=== PATIENT | female | born 1990 | race Caucasian/White ===

== ENCOUNTER 2017-07-18 16:36 | Emergency (ER) | payer SELFPAY ==
[2017-07-18 17:52] LABS: BUN Blood Urea Nitrogen 10 mg/dL (6-20); Bicarbonate 24 mEq/L (21-31); Glomerular Filtration Rate > 90 mL/min (=/>90); Glucose Level 96 mg/dL (65-120); Potassium 3.8 mEq/L (3.6-5.0); Sodium Level 136 mEq/L (135-145)
[2017-07-18 17:53] LABS: Absolute Lymphocytes (CBC) 2.6 K/uL (0.7-4.9); Absolute Monocytes 0.6 K/uL (0.1-1.3); Absolute Neutrophil 8.3 K/uL (1.8-8.0); Basophils % 0.2 % (0-1.3); Eosinophils % 1.5 % (0-4.4); Hematocrit 39.9 % (36.0-45.0); Lymphocytes % 22.5 % (15.3-44.8); MCH 31.1 pg (27.0-35.0); MCV 92.5 fL (80-100); MPV 8.4 fL (7.6-11.3); Monocytes % 5.2 % (3.3-12.3); RBC Red Blood Cell Count 4.32 M/uL (3.86-4.86)
[2017-07-18 18:04] LABS: Urine Specific Gravity 1.015 (1.005-1.030)
[2017-07-18 18:04] LABS: Urine Blood NEGATIVE (NEG); Urine Glucose NEGATIVE (NEG); Urine Protein NEGATIVE (NEG); Urine Specific Gravity 1.015 (1.005-1.030)
--- NOTE | 2017-07-18 18:28 | RAD REPORT ---
EXAM DESCRIPTION: US - Transvaginal OB - 07/18/2017 6:21 pm CLINICAL HISTORY: Pelvic pain and cramping. COMPARISON: None. FINDINGS: A single gestational sac is seen within the uterus. Within the sac is a single pole with crown-rump length measuring 5 mm corresponding to 6 weeks 2 days gestational age. Cardiac activity is normal measuring 113 BPM. The left ovary demonstrates normal size, shape and echotexture with normal Doppler blood flow. The ri ght ovary was not well evaluated sonographically. IMPRESSION: Single live early intrauterine gestation as detailed above.
--- NOTE | 2017-07-18 18:41 | EDPHYS ---
Physician Documentation [facility] Name: Mitra Hidalgo Age: 26 yrs Sex: Female : 1990 Arrival Date: 07/18/2017 Time: 16:40 Bed 27 Private MD: ED Physician Ryan Rodriguez HPI: 07/18 17:25 This 26 yrs old Female presents to ER via Ambulatory with complaints of 6 Wks cp , Abdominal Cramping. 17:25 The patient presents to the emergency department with abdominal pain, of the right cp lower quadrant and left lower quadrant, that started 2 day(s) ago, described as crampy. 17:25 course: care: none, Leakage of Fluid: none appreciated, Ultrasound: cp the patient has not had an ultrasound. Previous pregnancies: in previous pregnancies patient has had vaginal delivery, no complications. Associated signs and symptoms: Pertinent negatives: dysuria, fever, ruptured membranes, vaginal bleeding, vaginal discharge. 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 - Social history:: Smoking status: Patient uses tobacco products, smokes one-half pack cigarettes per day. ROS: 17:30 Constitutional: Negative for body aches, chills, fever, poor PO intake. cp 17:30 Eyes: Negative for injury, pain, redness, and discharge. cp 17:30 Cardiovascular: Negative for chest pain, edema, palpitations. cp 17:30 Abdomen/GI: Positive for abdominal pain, Negative for vomiting, diarrhea, constipation, cp anorexia. 17:30 Back: Negative for pain at rest, pain with movement, radiated pain. 17:30 : Negative for urinary symptoms, vaginal bleeding, vaginal discharge. 17:30 Skin: Negative for cellulitis, rash. 17:30 All other systems are negative. Exam: 17:35 Head/Face: Normocephalic, atraumatic. cp 17:35 Constitutional: The patient appears in no acute distress, alert, awake, comfortable, non-toxic, well developed, well nourished, obese. 17:35 Eyes: Periorbital structures: appear normal, Conjunctiva: normal, no exudate, no cp injection, Sclera: no appreciated abnormality, Lids and lashes: appear normal, bilaterally. 17:35 ENT: External ear(s): are unremarkable, Nose: is normal, Mouth: is normal, Posterior pharynx: is normal, airway is patent. 17:35 Chest/axilla: Inspection: normal, Palpation: is normal, no crepitus, no tenderness. 17:35 Cardiovascular: Rate: normal, Rhythm: regular. 17:35 Respiratory: the patient does not display signs of respiratory distress, Respirations: cp normal, no use of accessory muscles, no retractions, no splinting, no tachypnea, labored breathing, is not present, Breath sounds: are clear throughout, no decreased breath sounds, no stridor, no wheezing. 17:35 Abdomen/GI: Inspection: obese Bowel sounds: active, all quadrants, Palpation: soft, in all quadrants, mild abdominal tenderness, in the right lower quadrant and left lower quadrant, rebound tenderness, is not appreciated, involuntary guarding, is not appreciated. 17:35 Skin: cellulitis, is not appreciated, no rash present. Vital Signs: 16:59 BP 142 / 65; Pulse 67; Resp 16; Temp 97.7(O); Pulse Ox 99% on R/A; Weight 122.47 kg; ss Height 5 ft. 6 in. (167.64 cm); Pain 6/10; 18:00 BP 122 / 70; Pulse 71; Resp 15; Pulse Ox 100% on R/A; lk1 16:59 Body Mass Index 43.58 (122.47 kg, 167.64 cm) ss MDM: 16:52 Patient medically screened. cp 17:00 Differential diagnosis: STD, ectopic . cp 18:37 Data reviewed: vital signs, nurses notes, lab test result(s), radiologic studies, cp ultrasound, and as a result, I will discharge patient. 18:37 Counseling: I had a detailed discussion with the patient and/or guardian regarding: the cp historical points, exam findings, and any diagnostic results supporting the discharge/admit diagnosis, lab results, radiology results, the need for outpatient follow up, an OB/Gyne specialist, to return to the emergency department if symptoms worsen or persist or if there are any questions or concerns that arise at home. 18:37 Special discussion: Based on the patient's Hx, exam, and Dx evaluation, there is no cp indication for emergent surgery or inpatient Tx. It is understood by the patient/guardian that if the Sx's persist or worsen they need to return immediately for re-evaluation. 07/18 17:12 Order name: Quantitative Hcg; Complete Time: 18:49 07/18 18:49 Interpretation: HCGQ 61367.0; Reviewed. 07/18 17:12 Order name: Abo/rh Typing; Complete Time: 18:34 cp 07/18 17:12 Order name: Basic Metabolic Panel; Complete Time: 18:49 cp 07/18 18:35 Interpretation: Reviewed. 07/18 17:12 Order name: CBC with Diff; Complete Time: 18:34 cp 07/18 18:38 Interpretation: Normal except: WBC 11.7; NEUT A 8.3. 07/18 18:02 Order name: Urine Dipstick--Ancillary (enter results); Complete Time: 18:34 ss 07/18 18:34 Interpretation: Normal except: UESTR TRACE. 07/18 18:03 Order name: Urine --Ancillary (enter results); Complete Time: 18:34 ss 07/18 18:34 Interpretation: Reviewed. 07/18 17:12 Order name: Urine Test (obtain specimen); Complete Time: 18:01 07/18 17:12 Order name: IV Saline Lock; Complete Time: 18:01 07/18 17:12 Order name: Labs collected and sent; Complete Time: 18:01 07/18 17:12 Order name: NPO; Complete Time: 18:01 07/18 17:12 Order name: Urine Dipstick-Ancillary (obtain specimen); Complete Time: 18:01 07/18 17:46 Order name: US Transvaginal Ob; Complete Time: 18:34 07/18 18:50 Interpretation: Report reviewed. 07/18 18:15 Order name: ABO/RH no charge; Complete Time: 18:34 EDMS Administered Medications: 18:35 Drug: Tylenol 1000 mg Route: PO; lk1 18:56 Follow up: Response: No adverse reaction lk1 Disposition: 07/18/17 18:40 Discharged to Home. Impression: Lower abdominal pain, unspecified, related conditions, unspecified, first trimester. - Condition is Stable. - Discharge Instructions: Abdominal Pain During , Medicines During , Pelvic Rest. - Medication Reconciliation Form, Thank You Letter, Antibiotic Education, Prescription Opioid Use form. - Follow up: Private Physician; When: 1 week; Reason: Recheck today's complaints. - Problem is new. - Symptoms have improved. Addendum: 07/20/2017 07:01 Co-signature as Attending Physician, Ryan Rodriguez MD I agree with the assessment and k dr plan of care. Signatures: Dispatcher [employer] EDMS Ryan Rodriguez MD MD [facility] Corinna Rios RN RN Peter Garcia PA PA cp Hermelinda Mayo, RN RN lk1 Corrections: (The following items were deleted from the chart) 07/18 18:38 18:34 Normal except: WBC 11.7. cp cp
--- NOTE | 2017-07-18 18:41 | ER ---
Nurse's Notes [facility] Name: Mitra Hidalgo Age: 26 yrs Sex: Female : 1990 Arrival Date: 07/18/2017 Time: 16:40 Bed 27 Private MD: Diagnosis: Lower abdominal pain, unspecified; related conditions, unspecified, first trimester Presentation: 07/18 16:55 Presenting complaint: Patient states: pt reports she is approx 6 weeks and c/o ss lower abd cramping x 2-3 days. "it almost feels like [place] prater" denies vaginal bleeding. Transition of care: patient was not received from another setting of care. Onset of symptoms was July 13, 2017. Care prior to arrival: None. 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 - Social history:: Smoking status: Patient uses tobacco products, smokes one-half pack cigarettes per day. Screenin:57 Abuse screen: Denies threats or abuse. Denies injuries from another. Nutritional lk1 screening: No deficits noted. Tuberculosis screening: No symptoms or risk factors identified. Fall Risk None identified. Assessment: 17:20 General: Appears in no apparent distress. Behavior is calm, cooperative, appropriate lk1 for age. 17:20 Pain: Pain: Complains of pain in suprapubic area Pain currently is 6 out of 10 on a lk1 pain scale. Quality of pain is described as crampy. Neuro: Level of Consciousness is awake, alert, obeys commands. Neuro: Oriented to person, place, time, situation. Cardiovascular: Capillary refill is brisk Patient's skin is warm and dry. Respiratory: Airway is patent Respiratory effort is even, unlabored, Respiratory pattern is regular, symmetrical, Breath sounds are clear bilaterally. GI: Abdomen is non-distended, obese, Bowel sounds present X 4 quads. Abd is soft and non tender. GI: Reports cramping. : Denies vaginal bleeding. Vital Signs: 16:59 BP 142 / 65; Pulse 67; Resp 16; Temp 97.7(O); Pulse Ox 99% on R/A; Weight 122.47 kg; Height 5 ft. 6 in. (167.64 cm); Pain 6/10; 18:00 BP 122 / 70; Pulse 71; Resp 15; Pulse Ox 100% on R/A; lk1 16:59 Body Mass Index 43.58 (122.47 kg, 167.64 cm) ED Course: 16:40 Patient arrived in ED. mr 16:52 Peter Garcia PA is PHCP. cp 16:52 Ryan Rodriguez MD is Attending Physician. cp 16:59 Triage completed. ss 16:59 Arm band placed on right wrist. 17:11 Hermelinda Mayo, BECKY is Primary Nurse. lk1 17:20 Inserted saline lock: 22 gauge in left antecubital area, using aseptic technique. Blood lk1 collected. 18:20 Ultrasound completed. Patient tolerated well. cy 18:20 US Transvaginal Ob In Process Unspecified. EDMS 18:57 No provider procedures requiring assistance completed. IV discontinued, intact, lk1 bleeding controlled, No redness/swelling at site. Pressure dressing applied. 18:58 Patient has correct armband on for positive identification. Bed in low position. Call lk1 light in reach. Administered Medications: 18:35 Drug: Tylenol 1000 mg Route: PO; lk1 18:56 Follow up: Response: No adverse reaction lk1 Outcome: 18:40 Discharge ordered by MD. cp 18:57 Discharged to home ambulatory, with significant other. lk1 18:57 Condition: good 18:57 Discharge instructions given to patient, significant other, Instructed on discharge instructions, follow up and referral plans. medication usage, safety practices, Demonstrated understanding of instructions, follow-up care, medications. 19:00 Patient left the ED. lk1 Signatures: Dispatcher [employer] EDCA Stefanie Callaway mr RiosCorinna, RN RN Peter Garcia PA PA cp Hermelinda Mayo RN RN lk1 Mark Vann Corrections: (The following items were deleted from the chart) 18:56 17:20 General: Appears lk1 lk1
[2017-07-18] MEDS ORDERED: ACETAMINOPHEN 500 MG TAB ONE (18:55)
== END 2017-07-18 19:00 | disposition home or self-care (01) ==
LOC: ER 16:36
DX: R10.30 Lower abdominal pain, unspecified (principal); O99.331 Smoking (tobacco) complicating pregnancy, first trimester; F17.210 Nicotine dependence, cigarettes, uncomplicated; Z3A.01 Less than 8 weeks gestation of pregnancy
CPT/HCPCS: 36415; 76817; 80048; 81003; 81025; 84702; 85025; 86900; 86901; 99284